=== PATIENT | male | born 1960 | race African-American/Black ===

== ENCOUNTER 2016-07-14 00:23 | Emergency (ER) | payer BC ==
[~2016-07-14] VITALS: Ht 177.8 cm; Wt 104.3 kg
[2016-07-14 00:50] LABS: BASO % 0 % (0-3); EOS % 0 % (0-3); HEMATOCRIT 44.5 % (39.0-53.0); HEMOGLOBIN 14.9 g/dL (13.0-17.5); LYMPH % 23 % (24-48); MEAN CORPUSCULAR HEMOGLOBIN 29 pg (25-35); MEAN CORPUSCULAR HGB CONC 33 g/dL (31-37); MEAN CORPUSCULAR VOLUME 86 fL (79-100); MONO % 15 % (0-9); NEUT % 61 % (31-73); PLATELET COUNT 222 x10^3/uL (140-400); WHITE BLOOD COUNT 4.2 x10^3/uL (4.0-11.0)
[2016-07-14 00:56] VITALS: BP 139/80
[2016-07-14] MEDS ORDERED: KETOROLAC TROMETHAMINE 30 MG/ML INJ. IV ONE (01:00)
[2016-07-14] MEDS ORDERED: IV NORMAL SALINE 1000ML BAG 1,000 ML IV ONE (01:00)
[2016-07-14 01:04] LABS: CALCIUM 8.6 mg/dL (8.5-10.1); CREATININE 1.1 mg/dL (0.7-1.3); GFR 83.5; POTASSIUM 3.7 mmol/L (3.5-5.1)
[2016-07-14 01:10] LABS: ALBUMIN 3.7 g/dL (3.4-5.0); TOTAL BILIRUBIN 0.2 mg/dL (0.2-1.0); TOTAL PROTEIN 7.4 g/dL (6.4-8.2)
[2016-07-14 01:23] LABS: OBC FLU VALID
[2016-07-14] MEDS ORDERED: OSEL75CA PO (01:27)
--- NOTE | 2016-07-14 01:27 | PHYS DOC ---
Past Medical History Past Medical History: Arthritis, Bronchitis Past Surgical History: Other Additional Past Surgical Histo: RUPTURED BICEP Alcohol Use: None Drug Use: None Adult General Chief Complaint Chief Complaint: CHEST PAIN HPI HPI 56-year-old male presents with a 2 day history of upper respiratory symptoms including runny nose and burning eyes and a dry hacking cough. He states today when coughing he developed some chest discomfort that he described as sharp crossed his chest. Denies any hemoptysis. He states he has been running high fever at home and has body aches as well.. [] Review of Systems Review of Systems Constitutional: Reports fever [] Eyes: Denies change in visual acuity, redness, or eye pain [] HENT: Denies nasal congestion or sore throat [] Respiratory: Per history of present illness] Cardiovascular: No additional information not addressed in HPI [] GI: Denies abdominal pain, nausea, vomiting, bloody stools or diarrhea [] : Denies dysuria or hematuria [] Musculoskeletal: Denies back pain or joint pain [] Integument: Denies rash or skin lesions [] Neurologic: Denies headache, focal weakness or sensory changes [] Endocrine: Denies polyuria or polydipsia [] Current Medications Current Medications Current Medications Medications (Trade) Dose Ordered Sig/Girish Start Time Stop Time Status Last Admin Dose Admin Ketorolac Tromethamine (Toradol) 30 mg 1X ONCE 07/14/16 01:00 07/14/16 01:01 DC 07/14/16 00:52 30 MG Sodium Chloride (Iv Sodium Chloride 0.9% 1000ml Bag) 1,000 ml @ 1,000 mls/hr 1X ONCE 07/14/16 01:00 07/14/16 01:59 07/14/16 00:53 1,000 MLS/HR Allergies Allergies Allergies Coded Allergies Type Severity Reaction Last Updated Verified No Known Drug Allergies 07/14/16 No Physical Exam Physical Exam Constitutional: Well developed, well nourished, no acute distress, appears acutely ill. [] HENT: Normocephalic, atraumatic, bilateral external ears normal, oropharynx moist, no oral exudates, nose normal. [] Eyes: PERRLA, EOMI, conjunctiva normal, no discharge. [] Neck: Normal range of motion, no tenderness, supple, no stridor. [] Cardiovascular:Heart rate regular rhythm, no murmur [] Lungs & Thorax: Bilateral breath sounds clear to auscultation [] Abdomen: Bowel sounds normal, soft, no tenderness, no masses, no pulsatile masses. [] Skin: Warm, dry, no erythema, no rash. [] Back: No tenderness, no CVA tenderness. [] Extremities: No tenderness, no cyanosis, no clubbing, ROM intact, no edema. [] Neurologic: Alert and oriented X 3, normal motor function, normal sensory function, no focal deficits noted. [] Psychologic: Affect normal, judgement normal, mood normal. [] Current Patient Data Vital Signs Vital Signs Date Time Temp Pulse Resp B/P Pulse Ox O2 Delivery O2 Flow Rate FiO2 07/14/16 00:56 76 20 139/80 92 Room Air 07/14/16 00:27 100.4 100.4 Lab Values Laboratory Tests Test 07/14/16 00:38 07/14/16 00:46 White Blood Count 4.2x10^3/uL (4.0-11.0) Red Blood Count 5.20x10^6/uL (4.30-5.70) Hemoglobin 14.9g/dL (13.0-17.5) Hematocrit 44.5% (39.0-53.0) Mean Corpuscular Volume 86fL (79-100) Mean Corpuscular Hemoglobin 29pg (25-35) Mean Corpuscular Hemoglobin Concent 33g/dL (31-37) Red Cell Distribution Width 14.0% (11.5-14.5) Platelet Count 222x10^3/uL (140-400) Neutrophils (%) (Auto) 61% (31-73) Lymphocytes (%) (Auto) 23% (24-48) L Monocytes (%) (Auto) 15% (0-9) H Eosinophils (%) (Auto) 0% (0-3) Basophils (%) (Auto) 0% (0-3) Neutrophils # (Auto) 2.5x10^3uL (1.8-7.7) Lymphocytes # (Auto) 1.0x10^3/uL (1.0-4.8) Monocytes # (Auto) 0.6x10^3/uL (0.0-1.1) Eosinophils # (Auto) 0.0x10^3/uL (0.0-0.7) Basophils # (Auto) 0.0x10^3/uL (0.0-0.2) Sodium Level 139mmol/L (136-145) Potassium Level 3.7mmol/L (3.5-5.1) Chloride Level 101mmol/L (98-107) Carbon Dioxide Level 28mmol/L (21-32) Anion Gap 10 (6-14) Blood Urea Nitrogen 15mg/dL (8-26) Creatinine 1.1mg/dL (0.7-1.3) Estimated GFR (Cockcroft-Gault) 83.5 BUN/Creatinine Ratio 14 (6-20) Glucose Level 113mg/dL (70-99) H Lactic Acid Level 1.1mmol/L (0.4-2.0) Calcium Level 8.6mg/dL (8.5-10.1) Total Bilirubin 0.2mg/dL (0.2-1.0) Aspartate Amino Transferase (AST) 29U/L (15-37) Alanine Aminotransferase (ALT) 36U/L (16-63) Alkaline Phosphatase 65U/L (46-116) Troponin I Quantitative < 0.017ng/mL (0.000-0.055) Total Protein 7.4g/dL (6.4-8.2) Albumin 3.7g/dL (3.4-5.0) Albumin/Globulin Ratio 1.0 (1.0-1.7) Influenza Type A Antigen Negative (NEGATIVE) Influenza Type B Antigen Positive (NEGATIVE) Laboratory Tests 07/14/16 00:38 Laboratory Tests 07/14/16 00:38 EKG EKG [] Radiology/Procedures Radiology/Procedures [] Impressions: Chest x-ray: No acute cardiopulmonary findings. Course & Med Decision Making Course & Med Decision Making Pertinent Labs and Imaging studies reviewed. (See chart for details) [ED course: Evaluation reveals a 56-year-old male with flulike symptoms. He was positive for influenza B. He was given a dose of Tamiflu during the department. He was also given 1 L of IV fluids and 30 of Toradol IV which did help alleviate his symptoms. He felt better at the time of discharge.] Dragon Disclaimer Dragon Disclaimer This electronic medical record was generated, in whole or in part, using a voice recognition dictation system. Departure Departure Impression: Primary Impression: Influenza B Disposition: 01 HOME, SELF-CARE Condition: IMPROVED Referrals: MUSTAPHA VALENTINE MD (PCP) Patient Instructions: Influenza Facts, Influenza, Adult Additional Instructions: Thank you for allowing us to participate in your care today. Followup with your primary care physician in 3 days if your symptoms do not improve. Return to the emergency department you have any new or concerning findings. This should be evaluated by the primary care physician and any necessary consulting services for continued management within a few days after discharge. Return to emergency room if you have any new or concerning symptoms including but not limited to fever, chills, nausea, vomiting, intractable pain, any new rashes, chest pain, shortness of air, uncontrolled bleeding, difficulty breathing, and/or vision loss. You may have been prescribed medication that can change in your level of thinking and ability to operate machinery. These medications include hydrocodone and Ativan. Also, Benadryl has been known to do this as well. Be sure to check with your pharmacist and ask if the medications you've prescribed can affect your level of consciousness. I recommend not operating heavy machinery or driving while on medication such as these. Scripts Oseltamivir Phosphate (Tamiflu)75 Mg Capsule1 Cap PO BID influenza #10 CAP Prov:VERA PONCE DO 07/14/16 VERA PONCE DO Jul 14, 2016 01:27
[2016-07-14] MEDS ORDERED: OSELTAMIVIR 75 MG CAPSULE PO ONE (02:00)
--- NOTE | 2016-07-14 07:02 | EKG ---
[facility] [address] [place] [id number] Test Date: 2016-07-14 Test Time: 00:34:22 Pat Name: DENZEL MONTANA Department: Room: Gender: M Manager [employer]: : 1960 Requested By: VERA PONCE Order Number: [id number] Reading MD: Measurements Intervals Fowler Rate: 85 P: WI: QRS: -26 QRSD: 78 T: 35 QT: 348 QTc: 414 Interpretive Statements SINUS RHYTHM VENTRICULAR PREMATURE COMPLEX(ES) LEFTWARD AXIS QRS(T) CONTOUR ABNORMALITY CONSISTENT WITH INFERIOR INFARCT PROBABLY OLD ABNORMAL ECG RI6.01 No previous ECG available for comparison
--- NOTE | 2016-07-14 07:15 | RAD ---
Portable chest, 07/14/2016: History: Cough, fever Comparison is made to a study from 05/08/2005. The heart size and pulmonary vascularity are normal. No pulmonary infiltrates are seen. There is no evidence of pleural fluid. IMPRESSION: No acute cardiopulmonary abnormality is detected.
== END 2016-07-14 01:52 | disposition home or self-care (01) ==
LOC: ER 00:23
DX: J10.1 Influenza due to other identified influenza virus with other respiratory manifestations (principal); M19.90 Unspecified osteoarthritis, unspecified site
CPT/HCPCS: 36415; 71010; 80053; 83605; 84484; 85027; 87040; 87804; 93005; 96361; 96374; 99285; J1885; J7030